=== PATIENT | female | born 1975 | race Caucasian/White ===

== ENCOUNTER 2025-09-14 00:40 | Inpatient (IN) | payer OTHER ==
[~2025-09-14] VITALS: Ht 170.2 cm; Wt 59.9 kg
[2025-09-14 00:44] VITALS: O2SAT 95
[2025-09-14 02:17] LABS: BASOPHILS % 1.4 % (0.0-2.0); EOSINOPHILS % 1.8 % (0.0-5.0); HEMATOCRIT. 44.6 % (36.0-48.0); HEMOGLOBIN. 14.9 g/dL (12.0-16.0); LYMPHOCYTES % 27.1 % (20.0-50.0); MEAN PLATELET VOLUME 7.2 fl (7.4-10.4); MONOCYTES % 4.0 % (2.0-8.0); NEUTROPHILS % 65.7 % (40.0-76.0); PLATELET 347 x1000/uL (130-400); RED BLOOD CELL COUNT 4.65 mill/uL (4.2-5.4); RED CELL DISTRIBUTION WIDTH 14.9 % (11.6-14.6)
[2025-09-14 02:33] LABS: CREATININE 0.6 mg/dL (0.6-1.0); UREA NITROGEN BLOOD 5 mg/dL (9-23)
[2025-09-14] MEDS: ONDANSETRON HCL 4MG/2ML INJ IV ONE (03:25)
[2025-09-14] MEDS: SODIUM CHLORIDE 0.9% 1,000 ML IV ONE (03:26)
[2025-09-14] MEDS ORDERED: FOLIC ACID 1 MG, THIAMINE HCL 100 MG, MVI, ADULT NO.1 10 ML in DEXTROSE 5% WATER 1,000 ML IV ONE (07:15)
[2025-09-14] MEDS ORDERED: ACETAMINOPHEN 325MG TABLET PO PRN ×2 (07:15)
[2025-09-14] MEDS ORDERED: CLONIDINE 0.1MG TABLET PO PRN (07:15)
[2025-09-14] MEDS ORDERED: GUAIFENESIN 200MG/10ML SUGAR FREE UDC PO PRN (07:15)
[2025-09-14] MEDS ORDERED: MAGNESIUM/ALUMINUM HYDROXIDE/SIMETHICONE 30ML UDC PO PRN (07:15)
[2025-09-14] MEDS ORDERED: IPRATROPIUM/ALBUTEROL 0.5-3(2.5)MG/3ML NEB HHN PRN (07:15)
[2025-09-14] MEDS ORDERED: DOCUSATE SODIUM 100MG CAPSULE PO PRN (07:15)
[2025-09-14] MEDS ORDERED: LORAZEPAM 2MG/ML UD SYRINGE IV PRN ×2 (07:15→07:45)
[2025-09-14] MEDS ORDERED: ONDANSETRON HCL 4MG/2ML INJ IV PRN (07:15)
[2025-09-14] MEDS: FOLIC ACID 1 MG, THIAMINE HCL 100 MG, MVI, ADULT NO.1 10 ML in DEXTROSE 5% WATER 1,000 ML IV SCH (09:13)
[2025-09-14 10:45] VITALS: BP 102/60; PULSE 97; RESP 16; TEMP 36.696
[2025-09-14 12:00] VITALS: BP 100/52; PULSE 89; RESP 18; TEMP 36.4; O2SAT 98
[2025-09-14 17:01] LABS: PLATELET 351 x1000/uL (130-400); RED BLOOD CELL COUNT 4.39 mill/uL (4.2-5.4); RED CELL DISTRIBUTION WIDTH 14.6 % (11.6-14.6)
[2025-09-14 17:03] LABS: CREATININE 0.6 mg/dL (0.6-1.0)
[2025-09-14 17:04] LABS: UREA NITROGEN BLOOD < 5 mg/dL (9-23)
[2025-09-14 17:05] LABS: ASPARTATE AMINOTRANSFERASE 30 IU/L (<34)
[2025-09-14 17:06] LABS: BILIRUBIN TOTAL 0.8 mg/dL (0.1-1.0); CREATINE KINASE MB FRACTION 0.7 ng/mL (0.5-3.6); PROTEIN TOTAL 6.9 g/dL (6.0-8.3); TROPONIN I HIGH SENSITIVITY < 4 ng/L (3.0-34)
[2025-09-14 17:15] LABS: FOLIC ACID (FOLATE) SERUM > 20.00 ng/mL (>5.38); VITAMIN B12 SERUM 1215 pg/mL (211-911)
[2025-09-15] MEDS ORDERED: PANTOPRAZOLE 40MG DR TABLET PO SCH (06:40)
[2025-09-15] MEDS ORDERED: FOLIC ACID 1MG TABLET PO SCH (09:00)
== END 2025-09-14 16:36 | disposition left against medical advice (07) | DRG 93 ==
LOC: ER 00:40 → 7EST 03:59 → EDBEDREQ 04:03 → EDBEDREQTM 04:03 → ENRESERV 05:25 → 8WST 10:40
PROVIDERS: ADMIT Internal Medicine; ATTEND Internal Medicine
DX: G92.8 Other toxic encephalopathy (principal); F10.129 Alcohol abuse with intoxication, unspecified; Y90.8 Blood alcohol level of 240 mg/100 ml or more; Z53.29 Procedure and treatment not carried out because of patient's decision for other reasons
CPT/HCPCS: 36415; 80048; 80053; 80320; 82553; 82607; 82746; 84484; 85025; 85027; 93005; 93970; 96374; 99285; J2405; J3411; J3490; J7070; G0480